=== PATIENT | male | born 1950 | race Caucasian/White ===

== ENCOUNTER 2018-09-01 07:07 | Outpatient (CLI) | payer OTHER ==
[~2018-09-01 07:07] MED LIST: DUI500 PO; PERCOCET 10-321 EACH PO; PERCOCET 5-3251 EACH PO; VASOTEC; XARELTO10 MG PO
== END 2018-09-01 07:11 | disposition home or self-care (01) ==
LOC: RAD 07:07
DX: J41.0 Simple chronic bronchitis (principal); J44.9 Chronic obstructive pulmonary disease, unspecified

== ENCOUNTER 2018-12-26 08:34 | Outpatient (CLI) | payer OTHER | END 2018-12-26 08:37 | disposition home or self-care (01) | LOC: RAD 08:34 | DX: S49.92XA Unspecified injury of left shoulder and upper arm, initial encounter (principal); S59.902A Unspecified injury of left elbow, initial encounter ==